=== PATIENT | male | born 1930 | race Caucasian/White ===

== ENCOUNTER 2022-01-12 16:59 | Emergency (ER) | payer MEDICARE, BC ==
[2022-01-12] MEDS ORDERED: Sodium Chloride 0.9% 10 ML Syringe FLUSH PRN (18:22)
[2022-01-12 18:44] VITALS: BP 128/76; PULSE 74
[2022-01-12] MEDS ORDERED: Potassium Chloride 10 MEQ Cap.ER PO ONE (19:23)
== END 2022-01-12 19:45 | disposition home or self-care (01) ==
LOC: JP.ED 16:59
DX: E87.6 Hypokalemia (principal); I10 Essential (primary) hypertension; E66.9 Obesity, unspecified; Z68.28 Body mass index [BMI] 28.0-28.9, adult; Z88.8 Allergy status to other drugs, medicaments and biological substances; Z79.82 Long term (current) use of aspirin
CPT/HCPCS: 36415; 80048; 99282; 99284; A9270-GY; J3490